=== PATIENT | male | born 1995 ===

== ENCOUNTER 2022-10-30 01:45 | Emergency (ER) | payer SELFPAY ==
[2022-10-30] MEDS ORDERED: Lidocaine 1% MPF 2 ML VIAL ONE (02:19)
[2022-10-30] MEDS ORDERED: Bacitracin 1 PK ONE (02:19)
[2022-10-30] MEDS ORDERED: Boostrix 0.5 ML (Tdap) VIAL (>/=7 yrs of age) ONE (02:24)
== END 2022-10-30 03:38 | disposition home or self-care (01) ==
LOC: ERS 01:45
DX: S61.214A Laceration without foreign body of right ring finger without damage to nail, initial encounter (principal); S61.216A Laceration without foreign body of right little finger without damage to nail, initial encounter; E11.9 Type 2 diabetes mellitus without complications; Z23 Encounter for immunization
CPT/HCPCS: 12001; 90471; 90715